=== PATIENT | female | born 1995 | race Hispanic/Latino ===

== ENCOUNTER 2019-03-15 17:42 | Inpatient (IN) | payer BC, MEDICAID | END 2019-03-17 12:25 | disposition home or self-care (01) | LOC: WSH 03-16 04:25 → LDH 17:42 | PROC: 10E0XZZ Delivery of Products of Conception, External Approach (ICD-10-PCS; principal; ~2019-03-15) | PROC: 0KQM0ZZ Repair Perineum Muscle, Open Approach (ICD-10-PCS; ~2019-03-15) | DX: Z3A.39 39 weeks gestation of pregnancy (principal); O70.1 Second degree perineal laceration during delivery; Z37.0 Single live birth; O62.3 Precipitate labor; O62.2 Other uterine inertia ==

== ENCOUNTER 2023-08-22 21:52 | Inpatient (IN) | payer BC, MEDICAID ==
[~2023-08-22] VITALS: Ht 154.9 cm; Wt 77.5 kg
[~2023-08-22 21:52] MED LIST: PNV1TABL17 PO
[2023-08-23] MEDS ORDERED: ROPIVACAINE 0.2% 100ML VIAL 100 ML EP SCH (00:30)
[2023-08-23] MEDS ORDERED: MEPERIDINE-PF 50 MG/ML SYG IVP PRN (00:30)
[2023-08-23] MEDS ORDERED: EPHEDRINE SULFATE 50 MG/ML AMPULE IVP PRN (00:30)
[2023-08-23] MEDS ORDERED: PROMETHAZINE HCL 25 MG/ML 1ML AMPULE IM PRN (00:30)
[2023-08-23] MEDS ORDERED: LACTATED RINGERS 500 ML 500 ML IV PRN (00:30)
[2023-08-23] MEDS ORDERED: NALOXONE HCL 0.4 MG/1 ML ML IV PRN (00:30)
[2023-08-23 00:45] LABS: HEMATOCRIT 30.3 % (36-48); MEAN CORPUSCULAR HGB CONC 32.3 g/dL (32.0-36.0); MEAN CORPUSCULAR VOLUME 80.4 fL (79-99); RED BLOOD CELL COUNT(AUTO) 3.77 MIL/uL (4.00-5.50); RED CELL DISTRIBUTION WIDTH 15.5 % (11.0-15.5); WHITE BLOOD COUNT (AUTO) 11.5 K/uL (4.8-10.8)
[2023-08-23 03:02] LABS: APPEARANCE,URINE CLEAR (CLEAR); BILIRUBIN,URINE NEGATIVE (NEGATIVE); COLOR,URINE YELLOW (YELLOW); GLUCOSE, URINE (UA) NEGATIVE (NEGATIVE); KETONES,URINE 150 mg/dL (NEGATIVE); LEUKOCYTE ESTERASE ,URINE 75 Leu/uL (NEGATIVE); NITRATE,URINE NEGATIVE (NEGATIVE); OCCULT BLOOD,URINE NEGATIVE (NEGATIVE); PROTEIN,URINE 30 mg/dL (NEGATIVE); UROBILINOGEN,URINE 0.2 mg/dL (0.2-1.0)
[2023-08-23 03:19] LABS: ADD UA MICROSCOPIC YES
[2023-08-23 03:23] LABS: MUCUS,URINE FEW LPF (None Seen); SQUAMOUS EPITHELIAL CELL,UR RARE /HPF (0-2)
[2023-08-23] MEDS ORDERED: OXYTOCIN-LR 30 UNITS/500ML 500 ML IV SCH ×3 (04:00→11:00)
[2023-08-23] MEDS: LACTATED RINGERS 1000ML 1,000 ML IV PRN ×4 (04:40→09:19)
[2023-08-23] MEDS ORDERED: FENTANYL CITRATE PF 50 MCG/1 ML 2ML VIAL ONE (09:16)
[2023-08-23] MEDS ORDERED: METHYLERGONOVINE MALEATE 0.2 MG/1 ML ML IM SCH (10:20)
[2023-08-23] MEDS ORDERED: MISOPROSTOL 200 MCG TABLET ONE (10:22)
[2023-08-23] MEDS ORDERED: MISOPROSTOL 25 MCG TAB PR ONE (10:24)
[2023-08-23] MEDS ORDERED: METHYLERGONOVINE MALEATE 0.2 MG/1 ML ML ONE (10:24)
[2023-08-23] MEDS ORDERED: ACETAMINOPHEN WITH CODEINE 1 TAB TAB PO PRN (11:00)
[2023-08-23] MEDS ORDERED: MEASLES/MUMPS/RUBELLA VACCINE, LIVE 0.5 ML/VIAL SQ PRN (11:00)
[2023-08-23] MEDS ORDERED: LANOLIN 30GM OINTMENT TP PRN (11:00)
[2023-08-23] MEDS ORDERED: DIPH,PERTUSS(ACELL),TET VAC/PF 0.5 ML VIAL IM PRN (11:00)
[2023-08-23] MEDS ORDERED: BENZOCAINE/LANOLIN/ALOE VERA 60 ML AEROSOL TP PRN (11:00)
[2023-08-23] MEDS ORDERED: WITCH HAZEL 1 PAD TP PRN (11:00)
[2023-08-23] MEDS ORDERED: MISOPROSTOL 200 MCG TABLET PR ONE (11:30)
[2023-08-23 11:55] VITALS: BP 109/66; PULSE 82; RESP 19
[2023-08-23] MEDS: IBUPROFEN 600 MG TABLET PO PRN (12:03)
[2023-08-23 15:29] VITALS: BP 92/55; PULSE 106; RESP 17
[2023-08-23] MEDS: ACETAMINOPHEN 325 MG TAB PO PRN ×2 (16:23→20:47)
[2023-08-23 19:08] VITALS: BP 100/67; PULSE 91; RESP 22
[2023-08-23] MEDS: DOCUSATE SODIUM 100 MG CAP PO SCH (19:39)
[2023-08-23 23:02] VITALS: BP 99/54; PULSE 98; RESP 24
[2023-08-24] MEDS: ACETAMINOPHEN 325 MG TAB PO PRN (01:53)
[2023-08-24 04:06] VITALS: BP 106/53; PULSE 96; RESP 24
[2023-08-24 06:41] LABS: HEMATOCRIT 26.3 % (36-48); MEAN CORPUSCULAR HGB CONC 30.8 g/dL (32.0-36.0); MEAN CORPUSCULAR VOLUME 84.6 fL (79-99); PLATELET COUNT (AUTO) 218 K/uL (130-400); RED BLOOD CELL COUNT(AUTO) 3.11 MIL/uL (4.00-5.50); RED CELL DISTRIBUTION WIDTH 15.5 % (11.0-15.5)
[2023-08-24 07:19] VITALS: BP 108/78; PULSE 93; RESP 18
[2023-08-24] MEDS: DOCUSATE SODIUM 100 MG CAP PO SCH (08:34)
[2023-08-24] MEDS: IBUPROFEN 600 MG TABLET PO PRN (08:34)
[2023-08-24 12:20] VITALS: BP 105/57; PULSE 85; RESP 18
== END 2023-08-24 12:45 | disposition home or self-care (01) | DRG 807 ==
LOC: EDH 21:52 → LDH 22:21 → OBSVTOIN 22:21 → WSH 08-23 11:55
PROVIDERS: ADMIT Obstetrics & Gynecology; ATTEND Obstetrics & Gynecology
PROC: 10E0XZZ Delivery of Products of Conception, External Approach (ICD-10-PCS; principal; 2023-08-23)
PROC: 0KQM0ZZ Repair Perineum Muscle, Open Approach (ICD-10-PCS; 2023-08-23)
PROC: 10907ZC Drainage of Amniotic Fluid, Therapeutic from Products of Conception, Via Natural or Artificial Opening (ICD-10-PCS; 2023-08-23)
PROC: 0UQMXZZ Repair Vulva, External Approach (ICD-10-PCS; 2023-08-23)
DX: O69.81X0 Labor and delivery complicated by cord around neck, without compression, not applicable or unspecified (principal); Z37.0 Single live birth; O70.1 Second degree perineal laceration during delivery; O71.82 Other specified trauma to perineum and vulva; O99.02 Anemia complicating childbirth; Z3A.39 39 weeks gestation of pregnancy
CPT/HCPCS: 36415; 81001; 85027; 86592; 86850; 86900; 86901; 87088; 87340; A4314; G0378; J2210; J2795; J3010